=== PATIENT | male | born 1985 | race Caucasian/White ===

== ENCOUNTER 2019-05-17 20:31 | Emergency (ER) | payer MEDICAID, SELFPAY ==
[2019-05-17 20:34] VITALS: BP 116/77; PULSE 118; RESP 20; TEMP 36.5; O2SAT 97
--- NOTE | 2019-05-17 20:42 | ED.GENADUL_ITS ---
Discharge Plan Disposition Patient Disposition: HOME Condition: Improving Discharge Details Chief Complaint: ThroatFB Clinical Impression: Food impaction of esophagus Primary Care Provider: Alfredo Wiley ED Provider: Santosh Alves Discharge Instructions Additional Instructions: Please increase your ranitidine to twice daily. Follow-up with surgery in clinic for consideration of outpatient upper endoscopy. The office number is [phone] Chew your food well. Return for any acute concern. Medical Decision Making 34-year-old male states had previous meat impactions. Was eating a large sausage when he felt to get stuck in his upper esophagus and has had drooling and inability to swallow since that time. IV placed, glucagon trialed and surgery consulted for bedside evaluation. By the time of Dr. Guardado's evaluation, the patient was able to take liquids and felt subjectively better with passing of the food bolus. He has a history of [id number] disease and has not had upper endoscopy wi th a history of recurrent difficulty with food transit. We will refer him to the outpatient setting for consideration of upper endoscopy. In the meantime, he will increase his ranitidine to twice daily. He is stable for discharge to home HPI General Mode of arrival: EMS . Limitations to Documentation: no limitations . Information obtained by: patient and EMS . History of Present Illness 34 year old M presents to the emergency department with the chief complaint of I choked on a piece of meat and it feels stuck, described as moderate, Quality is described as constant, Patient reports no radiation. Patient started experiencing this minute(s) and it has been constant. No relieving factors improve symptom(s), No exacerbating factors reported . Patient notes no other symptoms.. Patient did receive the following treatments prior to arrival, none Related Data Allergies Allergy/AdvReac Type Severity Reaction Status Date / Time No Known Allergies Allergy Unverified 05/17/19 20:37 General Stated Complaint: ThroatFB THAO: 2 Review of Systems Review of Systems States this is happened before. Denies recent illness. States that he is followed by [facility]. [facility] Social History Smoking/Tobacco Use Status: Current every day Alcohol Intake: current Alcohol Intake frequency: a few times a week Drug use: Occasionally Substance use type: marijuana Do you feel safe at home: Yes Do you feel safe in your relationship?: Yes Exam Narrative Exam Narrative: GEN: awake, alert, oriented 3. Pleasant, well groomed, interactive. HEAD: Normocephalic, atraumatic ENT: Mucous membranes moist, oropharynx unremarkable, External ear exam unremarkable EYES: PERRL, EOMI NECK: Full ROM, no VAN, no menigismus CHEST/RESP: Nontender, clear to auscultation bilateral, no wheeze/rhonchi/rales CARDIOVASCULAR: Regular, borderline tachycardic, no murmur, rub analilia. 2+ Rad pulse bilateral ABDOMEN: Soft, nontender, no mass. +Bowel sounds EXT: Full ROM, no edema, no rash Neuro: Grossly normal neurologic exam, conversant, interactive. Psych: Speech fluent, thoughts congruent, affect anxious Course Vital Signs Temperature 36.5 C 05/17/19 20:34 Pulse 118 H 05/17/19 20:34 Respiratory Rate 20 05/17/19 20:34 Blood Pressure 116/77 05/17/19 20:34 Pulse Oximetry 97 05/17/19 20:34 Temperature 36.5 C 05/17/19 20:34 Temperature Source Tympanic 05/17/19 20:34 Pulse 118 H 05/17/19 20:34 Respiratory Rate 20 05/17/19 20:34 Respiratory Effort Non-Labored 05/17/19 20:38 Respiratory Pattern Normal 05/17/19 20:38 Blood Pressure 116/77 05/17/19 20:34 Pulse Oximetry 97 05/17/19 20:34 Pain Level 0 05/17/19 20:34
[2019-05-17] MEDS: LORazepam 2 MG/ML VIAL 0.5 MG IVP (21:06)
[2019-05-17] MEDS: Normal Saline 1,000 ML 125 ML IV (21:06)
--- NOTE | 2019-05-17 21:15 | NUR.NOTE ---
Nursing Note: Pt is able to swallow water now. Surgery at bedside
[2019-05-17 21:18] VITALS: BP 105/66; PULSE 96; RESP 18; O2SAT 98
== END 2019-05-17 21:23 | disposition home or self-care (01) ==
PROVIDERS: Emergency Provider Emergency Medicine; PCP Family Medicine
DX: T18.128A Food in esophagus causing other injury, initial encounter (principal); D89.813 Graft-versus-host disease, unspecified
CPT/HCPCS: 96374; 96375; 99284; 99283; J1610; J2060